=== PATIENT | female | born 1975 | race African-American/Black ===

== ENCOUNTER 2024-10-12 16:29 | Emergency (ER) | payer MEDICAID, OTHER ==
[~2024-10-12] VITALS: Ht 160 cm; Wt 78.0 kg
[2024-10-12 16:31] VITALS: BP 134/89; PULSE 94; RESP 20; TEMP 36.7; O2SAT 96
== END 2024-10-12 16:45 | disposition left against medical advice (07) ==
LOC: ER 16:29
DX: S00.83XA Contusion of other part of head, initial encounter (principal); Z53.21 Procedure and treatment not carried out due to patient leaving prior to being seen by health care provider; X58.XXXA Exposure to other specified factors, initial encounter; Y93.89 Activity, other specified; Y92.89 Other specified places as the place of occurrence of the external cause; Y99.9 Unspecified external cause status